=== PATIENT | female | born 1965 | race Caucasian/White ===

== ENCOUNTER 2017-12-15 12:03 | Observation (INO) ==
[2017-12-15 13:04] LABS: Basophils % 0.7 %; Eosinophils # 0.1 K/mcL (0.0-0.6); Eosinophils % 1.9 %; Hematocrit 45.1 % (35.3-44.9); Hemoglobin 14.3 g/dL (11.5-15.4); Immature Granulocytes % 0.4 % (0-4); Lymphocytes % 34.2 %; Mean Corpuscular HGB Conc 31.7 g/dL (31.6-35.5); Mean Corpuscular Hemoglobin 28.3 pg (28.0-33.3); Mean Corpuscular Volume 89.1 fL (83.0-100.0); Mean Platelet Volume 10.3 fL (9.4-12.4); Monocytes # 0.5 K/mcL (0.0-1.3); Monocytes % 8.8 %; Neutrophils # 3.1 K/mcL (1.6-8.9); Nucleated Red Blood Cells 0.4 /100 WBC (0); Platelet Count 329 K/mcL (140-400); Red Blood Count 5.06 M/mcL (3.82-4.97); Red Cell Distribution Width 14.8 % (11.5-14.5)
--- NOTE | 2017-12-15 13:23 | Emergency Department Note ---
Disposition Clinical Impression: Hypoxia, Acute electrocardiogram changes Dyspnea Qualifiers: Dyspnea type: shortness of breath Qualified Code(s): R06.02 - Shortness of breath; R06.00 - Dyspnea, unspecified; R06.01 - Orthopnea Disposition: Admitted As Inpatient Condition: Fair Referrals: Romel Pollard DO [Primary Care Provider] - Forms: ED Satisfaction Letter SOB HPI - General Chief Complaint: ED Shortness of Breath/Dyspnea Stated Complaint: SOB Time Seen by Provider: 12/15/17 12:58 Source: patient Mode of arrival: private vehicle Limitations: no limitations Nursing Notes Reviewed: Yes Vital Signs Reviewed: Yes - History of Present Illness Pt Subjective Complaint: shortness of breath Onset (ago): day(s) Context: recent illness Severity: moderate Consistency/Duration: constant, gradually worsening Improves with: rest Worsens with: exertion, coughing Known history of: other (blood dyscrasia) Associated symptoms: Reports: chest pain ("Just while here, waiting to be seen. Chest pressure, left side, non-radiating, lasted a few minutes then went away.") , cough, nausea/vomiting (nausea only). Denies: pain with inspiration, fever, wheezing, sputum production, orthopnea, lower extremity pain, polyuria, polydipsia, parasthesias, palpitations, hemoptysis, diaphoresis, syncope, abdominal pain, rash, sense of impending doom, other Treatment prior to arrival: oxygen (while at the [facility]) Cough present: Yes Cough Description: Voluntary, Non-Productive, Weak, Loose, Rattling Cough Frequency: Intermittent Sputum production: No - Related Data Home oxygen amount: none Home Medications Medication Instructions Recorded Confirmed Aspirin Enteric Coated [Aspirin EC] 81 mg PO DAILY 08/12/15 12/15/17 BuPROPion XL (24 HR) [Wellbutrin 150 mg PO DAILY 02/16/17 12/15/17 XL] Buspirone HCl [Buspar] 10 mg PO BID 02/16/17 12/15/17 Paroxetine [Paxil] 60 mg PO DAILY 04/13/17 12/15/17 Albuterol Sulfate [Ventolin Hfa] 2 puff IH Q4H PRN 12/15/17 12/15/17 Ergocalciferol (VITAMIN D2) 50,000 unit PO ESPINOZA 12/15/17 12/15/17 [Vitamin D2] Gabapentin [Neurontin] 800 mg PO TID 12/15/17 12/15/17 Levothyroxine [Synthroid] 125 mcg PO QAM 12/15/17 12/15/17 Sucralfate [Carafate] 1 gm PO TID 12/15/17 12/15/17 Previous Rx's Medication Instructions Recorded Ruxolitinib Phosphate [Jakafi] 10 mg PO BID #60 tablet 09/14/17 Allergies Allergy/AdvReac Type Severity Reaction Status Date / Time IVP dye Allergy Hives Uncoded 12/15/17 16:33 All systems ED: reviewed and negative except as stated. Review of Systems: As Per HPI Constitutional: Denies: fever, chills, weakness, weight change, night sweats Eyes: Denies: vision change ENT ED: Reports: congestion ("Sometimes, sinus congestion"). Denies: ear pain Cardiovascular: Reports: as per HPI, chest pain, dyspnea on exertion. Denies: palpitations, orthopnea, edema, syncope, paroxysmal nocturnal dyspnea Respiratory: Reports: as per HPI, cough, dyspnea. Denies: wheezes, hemoptysis, stridor, sputum production Gastrointestinal: Denies: abdominal pain, nausea, vomiting, diarrhea, constipation Genitourinary: Denies: dysuria Musculoskeletal: Denies: back pain, neck pain, joint swelling, arthralgia, myalgia Integumentary: Denies: rash, abrasion, lesions Neurological: Reports: weakness (since last night - generalized). Denies: headache, numbness, paresthesias, confusion, abnormal gait, vertigo Endocrine: Reports: fatigue. Denies: heat or cold intolerance, polydipsia, polyuria Hematological/Lymphatic: Denies: easy bleeding, easy bruising, lymphadenopathy Allergic/Immunologic: Denies: facial swelling, urticaria Past Medical History - Past Medical History Attestation: Yes The following information was validated with the patient. Source: patient Medical history: Reports: other (blood dyscrasia) Surgical history: Reports: non-contributory Psychiatric history: Reports: anxiety, depression - Social History Smoking Status: Current every day smoker Smokeless Tobacco Status: No Alcohol use: Reports: none Drug use: Reports: none Physical Exam - General Limitations: no limitations General appearance: alert, in no apparent distress - Head Head exam: atraumatic, normocephalic, normal inspection - Eye Eye exam: Present: normal appearance, PERRL. Absent: scleral icterus, conjunctival injection, periorbital swelling - ENT ENT exam: mucous membranes dry - Neck Neck exam: Present: normal inspection, full ROM, trachea midline. Absent: tenderness, meningismus, lymphadenopathy - Chest Chest inspection: Present: normal inspection, symmetric chest wall rise. Absent : tenderness - Respiratory Respiratory exam: Present: other. Absent: respiratory distress, wheezes, stridor, accessory muscle use, prolonged expiratory phase - Expanded Respiratory Exam Location: decreased breath sounds: Left, Right, Lower - Cardiovascular Cardiovascular exam: Present: regular rate, normal rhythm, normal heart sounds. Absent: systolic murmur, diastolic murmur - Extremities Exam Extremities exam: Present: normal inspection, full ROM, normal capillary refill. Absent: pedal edema, calf tenderness - Back Exam Back exam: Present: normal inspection, full ROM. Absent: tenderness - Neurological Exam Neurological exam: Present: alert, oriented X3, CN II-XII intact, normal gait - Psychiatric Psychiatric exam: Present: normal affect, normal mood Course Course Narrative: Patient was sent here from the [facility] for evaluation of dyspnea and hypoxia. She reports feeling short of breath since yesterday. She has had a cough for over a month; was diagnosed with Bronchitis and was treated with a Z- pack. She did not improve so when she was seen in F/U she had a RIP done which came back negative. She was diagnosed with a URI and was given Doxycycline. She completed a 10 day course of this antibiotic a week ago. Her symptoms were better for about 2 days and then returned. Now she is worse. She has had nausea without vomiting / diarrhea or abd pain. She denies hemoptysis, syncope, paraesthesias, weakness, leg pain or swelling. She has no known personal or family hx of DVT or PE, no hx of ACS and no fam hx of ACS. On exam she appears uncomfortable and at time anxious, but non-toxic. She is afebrile with normal heart rate. Hypoxic 87-90% on room air - increased to 94% on 3L. Labs, CXR, ekg and O2 ordered by the triage nurse per protocol. Duoneb, aspirin and zofran ordered after exam. Case discussed with Dr. Carrasco. He has had face to face time with the patient and agrees with the assessment and plan. Ddx includes: CHF, PE, COPD, CAP, Bronchitis, Anginal equivalent. Patient has new T wave inversions in tiffanie-septal leads on EKG compared with EKG from 2015. She has not had an ECG done anywhere else. She has never had a stress test or heart cath. Dyspnea is worse with exertion and she had a transient episode of chest pressure. Concerning for angina. Patient has hx of blood dyscrasia, but no hx of clot. Wells score is 3 for "diagnostic possibility". D-dimer added. This came back negative. Discussed ordering CTA with Dr. Carrasco. He recommends not ordering it at this time. Patient has no radiographic or lab findings concerning for CAP or CHF. Additionally, she has no peripheral edema, no murmur, no focal adventitious breath sounds, no fever. Patient will be admitted for further evalaution and treatment of dyspnea and ECG changes. - Reevaluation(s) Reevaluation #1: Patient is feeling better. She states, "I don't feel as tired or weak and I can breath better." She has had no additional episodes of pain. Vitals stable with improved sats, but still requiring O2. Time: 03:00 Vital Signs Temperature 98.3 F 12/15/17 12:28 Pulse Rate 72 12/15/17 12:28 Respiratory Rate 20 12/15/17 12:28 Blood Pressure 124/65 12/15/17 12:28 O2 Sat by Pulse Oximetry 90 12/15/17 12:28 Temperature 98.3 F 12/15/17 12:28 Pulse Rate 72 12/15/17 12:28 Respiratory Rate 20 12/15/17 12:28 Blood Pressure 124/65 12/15/17 12:28 O2 Sat by Pulse Oximetry 90 12/15/17 12:28 Oxygen Delivery Oxygen Delivery Room Air Shortness of Breath/Dyspnea - Medical Records Medical records reviewed: Yes I reviewed the patient's medical records. - Lab Data Lab results reviewed: Yes I reviewed the patient's lab results. Lab results narrative: Laboratory Last Values WBC 5.7 K/mcL (4.3-11.1) 12/15/17 12:56 RBC 5.06 M/mcL (3.82-4.97) H 12/15/17 12:56 Hgb 14.3 g/dL (11.5-15.4) 12/15/17 12:56 Hct 45.1 % (35.3-44.9) H 12/15/17 12:56 MCV 89.1 fL (83.0-100.0) 12/15/17 12:56 MCH 28.3 pg (28.0-33.3) 12/15/17 12:56 MCHC 31.7 g/dL (31.6-35.5) 12/15/17 12:56 RDW 14.8 % (11.5-14.5) H 12/15/17 12:56 Plt Count 329 K/mcL (140-400) 12/15/17 12:56 MPV 10.3 fL (9.4-12.4) 12/15/17 12:56 Immature Gran % 0.4 % (0-4) 12/15/17 12:56 Seg Neutrophils % 54.0 % 12/15/17 12:56 Lymphocytes % 34.2 % 12/15/17 12:56 Monocytes % 8.8 % 12/15/17 12:56 Eosinophils % 1.9 % 12/15/17 12:56 Basophils % 0.7 % 12/15/17 12:56 Neutrophils # 3.1 K/mcL (1.6-8.9) 12/15/17 12:56 Lymphocytes # 2.0 K/mcL (0.6-4.6) 12/15/17 12:56 Monocytes # 0.5 K/mcL (0.0-1.3) 12/15/17 12:56 Eosinophils # 0.1 K/mcL (0.0-0.6) 12/15/17 12:56 Basophils # 0.0 K/mcL (0.0-0.2) 12/15/17 12:56 Nucleated RBCs/100 WBC 0.4 /100 WBC (0) H 12/15/17 12:56 D-Dimer 433 ng/mLFEU (0-500) 12/15/17 12:56 Sodium 136 mEq/L (136-145) 12/15/17 12:56 Potassium 4.1 mEq/L (3.5-5.1) 12/15/17 12:56 Chloride 105 mEq/L (98-107) 12/15/17 12:56 Carbon Dioxide 28 mEq/L (23-29) 12/15/17 12:56 BUN 8 mg/dL (6-20) 12/15/17 12:56 Creatinine 0.60 mg/dL (0.60-1.20) 12/15/17 12:56 Est GFR ( Amer) > 60 (> 60) 12/15/17 12:56 Est GFR (Non-Af Amer) > 60 (> 60) 12/15/17 12:56 BUN/Creatinine Ratio 13 (6-26) 12/15/17 12:56 Glucose 98 mg/dL (70-105) 12/15/17 12:56 Calculated Osmolality 280 (280-300) 12/15/17 12:56 Lactic Acid 0.6 mmol/L (0.5-2.2) 12/15/17 12:56 Calcium 9.0 mg/dL (8.6-10.3) 12/15/17 12:56 Troponin I < 0.03 ng/mL (< 0.04) 12/15/17 12:56 B-Natriuretic Peptide 9 pg/mL (Less than 100) 12/15/17 12:56 Result diagrams: 12/15/17 12:56 12/15/17 12:56 Lab Results 12/15/17 12/15/17 12/15/17 Range/Units 12:56 12:56 12:56 WBC 5.7 (4.3-11.1) K/mcL RBC 5.06 H (3.82-4.97) M/mcL Hgb 14.3 (11.5-15.4) g/dL Hct 45.1 H (35.3-44.9) % MCV 89.1 (83.0-100.0) fL MCH 28.3 (28.0-33.3) pg MCHC 31.7 (31.6-35.5) g/dL RDW 14.8 H (11.5-14.5) % Plt Count 329 (140-400) K/mcL MPV 10.3 (9.4-12.4) fL Immature Gran % 0.4 (0-4) % Seg Neutrophils % 54.0 % Lymphocytes % 34.2 % Monocytes % 8.8 % Eosinophils % 1.9 % Basophils % 0.7 % Neutrophils # 3.1 (1.6-8.9) K/mcL Lymphocytes # 2.0 (0.6-4.6) K/mcL Monocytes # 0.5 (0.0-1.3) K/mcL Eosinophils # 0.1 (0.0-0.6) K/mcL Basophils # 0.0 (0.0-0.2) K/mcL Nucleated RBCs/100 WBC 0.4 H (0) /100 WBC D-Dimer (0-500) ng/mLFEU Sodium 136 (136-145) mEq/L Potassium 4.1 (3.5-5.1) mEq/L Chloride 105 (98-107) mEq/L Carbon Dioxide 28 (23-29) mEq/L BUN 8 (6-20) mg/dL Creatinine 0.60 (0.60-1.20) mg/dL Est GFR ( Amer) > 60 (> 60) Est GFR (Non-Af Amer) > 60 (> 60) BUN/Creatinine Ratio 13 (6-26) Glucose 98 (70-105) mg/dL Calculated Osmolality 280 (280-300) Lactic Acid 0.6 (0.5-2.2) mmol/L Calcium 9.0 (8.6-10.3) mg/dL Troponin I (< 0.04) ng/mL B-Natriuretic Peptide (Less than 100) pg/mL 12/15/17 12/15/17 12/15/17 Range/Units 12:56 12:56 12:56 WBC (4.3-11.1) K/mcL RBC (3.82-4.97) M/mcL Hgb (11.5-15.4) g/dL Hct (35.3-44.9) % MCV (83.0-100.0) fL MCH (28.0-33.3) pg MCHC (31.6-35.5) g/dL RDW (11.5-14.5) % Plt Count (140-400) K/mcL MPV (9.4-12.4) fL Immature Gran % (0-4) % Seg Neutrophils % % Lymphocytes % % Monocytes % % Eosinophils % % Basophils % % Neutrophils # (1.6-8.9) K/mcL Lymphocytes # (0.6-4.6) K/mcL Monocytes # (0.0-1.3) K/mcL Eosinophils # (0.0-0.6) K/mcL Basophils # (0.0-0.2) K/mcL Nucleated RBCs/100 WBC (0) /100 WBC D-Dimer 433 (0-500) ng/mLFEU Sodium (136-145) mEq/L Potassium (3.5-5.1) mEq/L Chloride (98-107) mEq/L Carbon Dioxide (23-29) mEq/L BUN (6-20) mg/dL Creatinine (0.60-1.20) mg/dL Est GFR ( Amer) (> 60) Est GFR (Non-Af Amer) (> 60) BUN/Creatinine Ratio (6-26) Glucose (70-105) mg/dL Calculated Osmolality (280-300) Lactic Acid (0.5-2.2) mmol/L Calcium (8.6-10.3) mg/dL Troponin I < 0.03 (< 0.04) ng/mL B-Natriuretic Peptide 9 (Less than 100) pg/mL - Radiology Data Radiology results reviewed: Yes I reviewed the patient's radiology results. Chest X-Ray 12/15/17 12:41 IMPRESSION: No acute cardiopulmonary process D/ / Darrin Osborne MD / Darrin Osborne MD Interpreting Provider: Darrin Osborne MD - EKG Data EKG attestation: Yes I reviewed and interpreted this EKG. EKG shows normal: Reports: sinus rhythm Rate: Reports: normal Rhythm: Reports: NSR [place]/QRS: Reports: normal T wave inversions noted in: Reports: v1, v2, v3, v4 When compared to previous EKG there are: changes noted Interpretation: Reports: nonspecific ST-T wave changes
[2017-12-15] MEDS ORDERED: Ondansetron ODT 4 MG TAB.RAPDIS SL ONE (13:41)
[2017-12-15] MEDS ORDERED: Ipratropium/Albuterol Neb 3 ML IH ONE (13:41)
[2017-12-15] MEDS ORDERED: Aspirin 81 MG TAB.CHEW PO ONE (13:41)
[2017-12-15 13:50] LABS: BUN/Creatinine Ratio 13 (6-26); Blood Urea Nitrogen 8 mg/dL (6-20); Carbon Dioxide 28 mEq/L (23-29); Chloride 105 mEq/L (98-107); Glucose 98 mg/dL (70-105); Osmolality,Calculated 280 (280-300); Potassium 4.1 mEq/L (3.5-5.1); Sodium 136 mEq/L (136-145); eGFR For African Americans > 60 (> 60); eGFR For Non-African Americans > 60 (> 60)
--- NOTE | 2017-12-15 14:37 | Emergency Department Note ---
Disposition Clinical Impression: Dyspnea, Hypoxia, Acute electrocardiogram changes Disposition: Admitted As Inpatient Condition: Fair General Adult HPI - General Chief complaint: ED Shortness of Breath/Dyspnea Stated complaint: SOB Time Seen by Provider: 12/15/17 12:58 Source: patient Mode of arrival: private vehicle Limitations: no limitations - History of Present Illness Pain Scale: 5 - Related Data Home Medications Medication Instructions Recorded Confirmed Aspirin Enteric Coated [Aspirin EC] 81 mg PO DAILY 08/12/15 12/15/17 BuPROPion XL (24 HR) [Wellbutrin 150 mg PO DAILY 02/16/17 12/15/17 XL] Buspirone HCl [Buspar] 10 mg PO BID 02/16/17 12/15/17 Paroxetine [Paxil] 60 mg PO DAILY 04/13/17 12/15/17 Albuterol Sulfate [Ventolin Hfa] 2 puff IH Q4H PRN 12/15/17 12/15/17 Ergocalciferol (VITAMIN D2) 50,000 unit PO ESPINOZA 12/15/17 12/15/17 [Vitamin D2] Gabapentin [Neurontin] 800 mg PO TID 12/15/17 12/15/17 Levothyroxine [Synthroid] 125 mcg PO QAM 12/15/17 12/15/17 Sucralfate [Carafate] 1 gm PO TID 12/15/17 12/15/17 Previous Rx's Medication Instructions Recorded Ruxolitinib Phosphate [Jakafi] 10 mg PO BID #60 tablet 09/14/17 Allergies Allergy/AdvReac Type Severity Reaction Status Date / Time IVP dye Allergy Hives Uncoded 12/15/17 16:33 Past Medical History - Past Medical History Medical history: Reports: non-contributory Psychiatric history: Reports: anxiety, depression - Social History Smoking Status: Current every day smoker Smokeless Tobacco Status: No Alcohol use: Reports: none Drug use: Reports: none Physical Exam - General Limitations: no limitations General appearance: alert Course Vital Signs Temperature 98.3 F 12/15/17 12:28 Pulse Rate 72 12/15/17 12:28 Respiratory Rate 20 12/15/17 12:28 Blood Pressure 124/65 12/15/17 12:28 O2 Sat by Pulse Oximetry 90 12/15/17 12:28 Temperature 98.5 F 12/15/17 19:23 Pulse Rate 73 12/15/17 19:23 Respiratory Rate 16 12/15/17 19:23 Blood Pressure 111/58 12/15/17 19:23 O2 Sat by Pulse Oximetry 91 12/15/17 19:23 Oxygen Delivery Oxygen Delivery Nasal Cannula Medical Decision Making - Lab Data Result diagrams: 12/15/17 12:56 12/15/17 12:56 Lab Results 12/15/17 12/15/17 12/15/17 Range/Units 12:56 12:56 12:56 WBC 5.7 (4.3-11.1) K/mcL RBC 5.06 H (3.82-4.97) M/mcL Hgb 14.3 (11.5-15.4) g/dL Hct 45.1 H (35.3-44.9) % MCV 89.1 (83.0-100.0) fL MCH 28.3 (28.0-33.3) pg MCHC 31.7 (31.6-35.5) g/dL RDW 14.8 H (11.5-14.5) % Plt Count 329 (140-400) K/mcL MPV 10.3 (9.4-12.4) fL Immature Gran % 0.4 (0-4) % Seg Neutrophils % 54.0 % Lymphocytes % 34.2 % Monocytes % 8.8 % Eosinophils % 1.9 % Basophils % 0.7 % Neutrophils # 3.1 (1.6-8.9) K/mcL Lymphocytes # 2.0 (0.6-4.6) K/mcL Monocytes # 0.5 (0.0-1.3) K/mcL Eosinophils # 0.1 (0.0-0.6) K/mcL Basophils # 0.0 (0.0-0.2) K/mcL Nucleated RBCs/100 WBC 0.4 H (0) /100 WBC D-Dimer (0-500) ng/mLFEU Sodium 136 (136-145) mEq/L Potassium 4.1 (3.5-5.1) mEq/L Chloride 105 (98-107) mEq/L Carbon Dioxide 28 (23-29) mEq/L BUN 8 (6-20) mg/dL Creatinine 0.60 (0.60-1.20) mg/dL Est GFR ( Amer) > 60 (> 60) Est GFR (Non-Af Amer) > 60 (> 60) BUN/Creatinine Ratio 13 (6-26) Glucose 98 (70-105) mg/dL Calculated Osmolality 280 (280-300) Lactic Acid 0.6 (0.5-2.2) mmol/L Calcium 9.0 (8.6-10.3) mg/dL Troponin I (< 0.04) ng/mL B-Natriuretic Peptide (Less than 100) pg/mL 12/15/17 12/15/17 12/15/17 Range/Units 12:56 12:56 12:56 WBC (4.3-11.1) K/mcL RBC (3.82-4.97) M/mcL Hgb (11.5-15.4) g/dL Hct (35.3-44.9) % MCV (83.0-100.0) fL MCH (28.0-33.3) pg MCHC (31.6-35.5) g/dL RDW (11.5-14.5) % Plt Count (140-400) K/mcL MPV (9.4-12.4) fL Immature Gran % (0-4) % Seg Neutrophils % % Lymphocytes % % Monocytes % % Eosinophils % % Basophils % % Neutrophils # (1.6-8.9) K/mcL Lymphocytes # (0.6-4.6) K/mcL Monocytes # (0.0-1.3) K/mcL Eosinophils # (0.0-0.6) K/mcL Basophils # (0.0-0.2) K/mcL Nucleated RBCs/100 WBC (0) /100 WBC D-Dimer 433 (0-500) ng/mLFEU Sodium (136-145) mEq/L Potassium (3.5-5.1) mEq/L Chloride (98-107) mEq/L Carbon Dioxide (23-29) mEq/L BUN (6-20) mg/dL Creatinine (0.60-1.20) mg/dL Est GFR ( Amer) (> 60) Est GFR (Non-Af Amer) (> 60) BUN/Creatinine Ratio (6-26) Glucose (70-105) mg/dL Calculated Osmolality (280-300) Lactic Acid (0.5-2.2) mmol/L Calcium (8.6-10.3) mg/dL Troponin I < 0.03 (< 0.04) ng/mL B-Natriuretic Peptide 9 (Less than 100) pg/mL Attestation Statement - Attestation Attestation: For this encounter, I have reviewed the INTELLIGENCE SUPPORT OFFICER or PA documentation, treatment plan, and medical decision making; and I have had face to face time with this patient. [id number] time provided Patient appears in no acute distress although mildly dyspneic. EKG reviewed by me. Labs reviewed by me. Transcribed x-ray report reviewed by me
[2017-12-15] MEDS ORDERED: Dexamethasone 4 MG/ML VIAL IVP ONE (14:45)
[2017-12-15] MEDS ORDERED: 0.9 % Sodium Chloride 500 ML IVC ONE (14:45)
--- NOTE | 2017-12-15 16:51 | Internal Med History&Physical ---
Date of Encounter: 12/15/17 Time of Encounter: 16:47 Assessment and Plan (1) Chest pain Current visit: Yes Status: Acute Chest pain. Obese patient EKG is unremarkable troponin so far negative we will schedule for stress test and echo in a.m. in the meantime CTAs ordered pending to be done Qualifiers: Chest pain type: intercostal pain Qualified Code(s): R07.82 - Intercostal pain (2) Depression Current visit: No Status: Chronic Chronic continue home medication Qualifiers: Depression Type: unspecified Qualified Code(s): F32.9 - Major depressive disorder, single episode, unspecified (3) Polycythemia vera Current visit: No Status: Chronic Chronic continue home medication (4) Hypothyroidism Current visit: No Status: Chronic Chronic continue her medication Qualifiers: Hypothyroidism type: acquired Qualified Code(s): E03.9 - Hypothyroidism, unspecified Internal Medicine - H&P: HPI Chief complaint: chest pain Admitted From: Emergency Dept Plans for Post Hospital Care: Home History of present illness: Ms. Martin is a 51 year old female Patient with history of hypothyroidism, polycythemia rubra vera on medication, obesity, depression and anxiety. Patient presented to emergency room with shortness of breath and chest pain chest pain worse with activity evaluation exam is unremarkable EKG is unremarkable chest x-ray was normal Bnp 9 d-dimer was 437 which is elevated CTA scan was ordered patient allergic to dye so it will be done later after pre medication . Will admit patientand scheduled for nuclear stress test and echo if CTA is negative for PE Past Med Surg Social Fam HX - Past Medical History Medical history: non-contributory, thyroid disease Psychiatric history: anxiety, depression - Past Surgical History Surgical History: non-contributory - Social History Smoking Status: Current every day smoker Smokeless Tobacco Status: No Alcohol use: none Drug use: none Internal Medicine - H&P: Meds Aspirin Enteric Coated [Aspirin EC] 81 mg PO DAILY 08/12/15 [History] BuPROPion XL (24 HR) [Wellbutrin XL] 150 mg PO DAILY 02/16/17 [History] Buspirone HCl [Buspar] 10 mg PO BID 02/16/17 [History] Paroxetine [Paxil] 60 mg PO DAILY 04/13/17 [History] Ruxolitinib Phosphate [Jakafi] 10 mg PO BID #60 tablet 09/14/17 [Rx] Albuterol Sulfate [Ventolin Hfa] 2 puff IH Q4H PRN 12/15/17 [History] Ergocalciferol (VITAMIN D2) [Vitamin D2] 50,000 unit PO ESPINOZA 12/15/17 [History] Gabapentin [Neurontin] 800 mg PO TID 12/15/17 [History] Levothyroxine [Synthroid] 125 mcg PO QAM 12/15/17 [History] Sucralfate [Carafate] 1 gm PO TID 12/15/17 [History] 3 Allergy/AdvReac Type Severity Reaction Status Date / Time IVP dye Allergy Hives Uncoded 12/15/17 16:33 All Systems PM: A 10-system review of systems was performed and is negative for pertinent findings except as documented above in the HPI. - Constitutional Constitutional: no chills, no fever(s), no night sweats - EENT Eyes: no change in vision, no discharge, no pain, no photophobia Ears: no ear discharge, no ear pain, no tinnitus Nose, mouth and throat: no dysphagia, no nasal discharge, no neck pain, no sore throat - Cardiovascular Cardiovascular ROS IM: chest pain, dyspnea on exertion - Respiratory Respiratory: no cough, no dyspnea, no wheezing, no excessive phlegm production - Gastrointestinal Gastrointestinal: no abdominal pain, no diarrhea, no hematemesis, no hematochezia, no melena, no nausea, no vomiting - Genitourinary Genitourinary: no change in urinary stream, no dysuria, no flank pain, no hematuria - Musculoskeletal Musculoskeletal ROS IM: no numbness, no tingling - Integumentary Integumentary IM: no rash, no unusual bruising - Neurological Neurological ROS: no confusion, no convulsions, no focal weakness, no numbness, no tingling, no tremor(s) - Constitutional Vitals: Temp Pulse Resp BP Pulse Ox 98.3 F 72 20 124/65 90 12/15/17 12:28 12/15/17 12:28 12/15/17 12:28 12/15/17 12:28 12/15/17 12:28 - Head Head exam: Present: atraumatic, normocephalic - Eye Eye exam: Present: PERRL, conjuntiva pink, sclera anicteric Pupils: Present: PERRL - Neck Neck exam general surgery: Present: supple, trachea midline. Absent: lymphadenopathy - Respiratory Respiratory exam: Present: CTAB. Absent: accessory muscle use, rales, rhonchi, wheezes - Cardiovascular Cardiovascular exam: Present: RRR, +S1, +S2. Absent: diastolic murmur, gallop, rubs, systolic murmur - GI/Abdominal GI/Abdominal exam: Present: normal bowel sounds, soft, no peritoneal signs. Absent: distended, tenderness - Extremities Exam Extremities exam: Present: warm, radial pulses palpable and symmetrical. Absent : calf tenderness, cyanotic, pedal edema - Neurological Exam Neurological exam: Present: CN II-XII intact, oriented X3, no focal deficits. Absent: pronater drift, facial droop, speech deficit - Skin Skin exam: Present: dry, intact Internal Med - H&P Results - Labs CBC & Chem 7: 12/15/17 12:56 12/15/17 12:56
[2017-12-15] MEDS ORDERED: Naloxone 0.4 MG/ML INJ IVP PRN (16:55)
[2017-12-15] MEDS ORDERED: Acetaminophen 325 MG TABLET PO PRN (16:55)
[2017-12-15] MEDS ORDERED: traMADol 50 MG TABLET PO PRN (16:55)
[2017-12-15] MEDS ORDERED: 0.9 % Sodium Chloride 1,000 ML IVC SCH (17:00)
[2017-12-15] MEDS: Sucralfate 1 GM TABLET PO SCH (20:25)
[2017-12-15] MEDS: RUXOLITINIB PHOSPHATE 10 MG PO SCH (20:26)
[2017-12-15] MEDS: Gabapentin 400 MG CAPSULE PO SCH (20:26)
[2017-12-15] MEDS ORDERED: predniSONE 20 MG TABLET PO ONE (23:09)
[2017-12-16 00:32] LABS: Basophils % 0.2 %; Hematocrit 41.9 % (35.3-44.9); Hemoglobin 13.5 g/dL (11.5-15.4); Immature Granulocytes % 0.4 % (0-4); Lymphocytes # 0.6 K/mcL (0.6-4.6); Lymphocytes % 12.7 %; Mean Corpuscular HGB Conc 32.2 g/dL (31.6-35.5); Mean Corpuscular Hemoglobin 28.7 pg (28.0-33.3); Mean Platelet Volume 10.5 fL (9.4-12.4); Monocytes # 0.1 K/mcL (0.0-1.3); Neutrophils # 4.1 K/mcL (1.6-8.9); Platelet Count 325 K/mcL (140-400); Red Blood Count 4.71 M/mcL (3.82-4.97); Red Cell Distribution Width 14.8 % (11.5-14.5); Segmented Neutrophils % 84.7 %
[2017-12-16 00:59] LABS: Alanine Aminotransferase 15 Units/L (7-52); Albumin 3.8 g/dL (3.5-5.7); Albumin/Globulin Ratio 1.5 (1.1-2.2); Alkaline Phosphatase 73 Units/L (34-104); Aspartate Amino Transferase 15 Units/L (13-39); BUN/Creatinine Ratio 20 (6-26); Bilirubin,Total 0.4 mg/dL (0.3-1.0); Blood Urea Nitrogen 12 mg/dL (6-20); Calcium 8.7 mg/dL (8.6-10.3); Carbon Dioxide 29 mEq/L (23-29); Chloride 108 mEq/L (98-107); Chol/HDL Ratio 4.1 (0-4.9); Cholesterol 175 mg/dL (< 200); Globulin 2.6 g/dL (2.4-3.5); Glucose 133 mg/dL (70-105); HDL Cholesterol 43 mg/dL (40-59); LDL Cholesterol,Calculated 119 mg/dL (0-99); Magnesium 2.2 mg/dL (1.6-2.6); Osmolality,Calculated 296 (280-300); Potassium 4.5 mEq/L (3.5-5.1); Sodium 142 mEq/L (136-145); Total Protein 6.4 g/dL (6.4-8.9); Triglycerides 65 mg/dL (< 150); eGFR For African Americans > 60 (> 60); eGFR For Non-African Americans > 60 (> 60)
[2017-12-16] MEDS ORDERED: predniSONE 20 MG TABLET PO ONE ×2 (05:00→11:00)
[2017-12-16] MEDS ORDERED: Regadenoson 0.4 MG/5 ML SYRINGE IVP ONE (06:27)
--- NOTE | 2017-12-16 06:47 | Electrocardiograph Report ---
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
[2017-12-16] MEDS ORDERED: Aspirin Enteric Coated 81 MG Tablet PO SCH (09:00)
[2017-12-16] MEDS ORDERED: BuPROPion XL (24 HR) 150 MG TABLET PO SCH (09:00)
[2017-12-16] MEDS: Sucralfate 1 GM TABLET PO SCH ×2 (09:48→14:41)
[2017-12-16] MEDS: Gabapentin 400 MG CAPSULE PO SCH ×2 (09:49→14:41)
[2017-12-16] MEDS: RUXOLITINIB PHOSPHATE 10 MG PO SCH (09:50)
[2017-12-16 11:17] VITALS: BP 103/62
--- NOTE | 2017-12-16 14:58 | Discharge Summary ---
Date of Encounter: 12/16/17 Time of Encounter: 14:55 - Discharge Diagnosis (1) Chest pain Priority: Primary Status: Acute Comments: Chest pain. Obese patient, EKG is unremarkable troponin negative stress test negative for ischemia at the level of heart rate achieved with gaited EF greater than 70% perfusion imaging was negative for ischemia or infarct echo LVEF 60-65%, normal LV chamber size wall thickness and function, moderate left ventricular diastolic dysfunction, normal right ventricular structure and function, no significant valvular dysfunction, unable to estimate RVSP due to lack of TR jet. CTA with no pulmonary embolism or acute pulmonary abnormalities f/u with PCP Qualifiers: Chest pain type: intercostal pain Qualified Code(s): R07.82 - Intercostal pain (2) Depression Priority: Secondary Status: Chronic Comments: chronic condition, continue her medicat Qualifiers: Depression Type: unspecified Qualified Code(s): F32.9 - Major depressive disorder, single episode, unspecified (3) Hypothyroidism Priority: Secondary Status: Chronic Comments: Condition, continue home medications Qualifiers: Hypothyroidism type: acquired Qualified Code(s): E03.9 - Hypothyroidism, unspecified (4) Polycythemia vera Priority: Secondary Status: Chronic Comments: This is a chronic condition continue home medications and follow up with primary provider as previously directed (5) Dyspnea Priority: Primary Status: Acute Comments: Patient satting 88-94% on room air O2 needed, follow-up with primary care physician if symptoms persist. Qualifiers: Dyspnea type: shortness of breath Qualified Code(s): R06.02 - Shortness of breath; R06.00 - Dyspnea, unspecified; R06.01 - Orthopnea - Discharge Medications Home Medications: Aspirin Enteric Coated [Aspirin EC] 81 mg PO DAILY 08/12/15 [History] BuPROPion XL (24 HR) [Wellbutrin Xl] 150 mg PO DAILY 02/16/17 [History] Buspirone HCl [Buspar] 10 mg PO BID 02/16/17 [History] Paroxetine [Paxil] 60 mg PO DAILY 04/13/17 [History] Ruxolitinib Phosphate [Jakafi] 10 mg PO BID #60 tablet 09/14/17 [Rx] Albuterol Sulfate [Ventolin Hfa] 2 puff IH Q4H PRN 12/15/17 [History] Ergocalciferol (VITAMIN D2) [Vitamin D2] 50,000 unit PO ESPINOZA 12/15/17 [History] Gabapentin [Neurontin] 800 mg PO TID 12/15/17 [History] Levothyroxine [Synthroid] 125 mcg PO QAM 12/15/17 [History] Sucralfate [Carafate] 1 gm PO TID 12/15/17 [History] Allergies/Adverse Reactions: 3 Allergy/AdvReac Type Severity Reaction Status Date / Time IVP dye Allergy Hives Uncoded 12/15/17 16:33 Procedures/tests Complete & Pending: Procedures Performed prior 72 hours Category Date Time Status CT angio chest [CT] Stat Cat Scan 12/16/17 12:15 Draft NM [place] perf SPECT multi [NM] Routine Exams 12/15/17 17:08 Taken EV echocardiogram Routine Y 12/15/17 17:07 Completed SP pharm nuclear stress Routine Y 12/15/17 17:08 Completed Date of admission: 12/15/17 15:30 Primary care physician: Romel Pollard Discharging clinician: Delores Herron Anticipated date of discharge: 12/16/17 - Patient Status Disposition: Home, Self-Care Condition: Fair Functional capacity at discharge: independent ambulation Overall status at discharge: patient is back to baseline - Discharge Instructions Follow Up With: Daniel Page MD [Partnered Physician] - 12/29/17 10:00 am - Diet and Activity Activity: resume usual activities as tolerated Diet: advance to your usual diet Interval History: Patient lying in bed in no distress, no further chest pain. She has rather flat affect. She states she still feels like she needs oxygen but O2 sats are 88-94% on room air. She was shallow breathing encouraged her to take deep breaths during her exam. Denies fever chills cough, no pain or other complaints. Hospital course: Ms. Martin is a 51 year old female presented with chest pain, CTA is negative for PE or acute pulmonary findings, stress test is negative for ischemia. Troponins were negative. EKG with no changes. Patient should follow-up with primary care physician - Time Spent with Patient Total time spent providing and/or coordinating discharge services: - Constitutional Vitals: Temp Pulse Resp BP Pulse Ox 98.8 F 75 16 103/62 91 12/16/17 11:16 12/16/17 11:16 12/16/17 11:16 12/16/17 11:16 12/16/17 11:16 General appearance: Present: cooperative, A&O X 3, no acute distress, obese, answers questions appropriately - Head Head exam: Present: atraumatic, normocephalic - Eye Eye exam: Present: PERRL, conjuntiva pink, sclera anicteric Pupils: Present: PERRL - Neck Neck exam general surgery: Present: supple, trachea midline. Absent: lymphadenopathy - Respiratory Respiratory exam: Present: CTAB. Absent: accessory muscle use, rales, rhonchi, wheezes - Cardiovascular Cardiovascular exam: Present: RRR, +S1, +S2. Absent: diastolic murmur, gallop, rubs, systolic murmur - GI/Abdominal GI/Abdominal exam: Present: normal bowel sounds, soft, no peritoneal signs. Absent: distended, tenderness - Extremities Exam Extremities exam: Present: warm, radial pulses palpable and symmetrical. Absent : calf tenderness, cyanotic, pedal edema - Neurological Exam Neurological exam: Present: CN II-XII intact, oriented X3, no focal deficits. Absent: pronater drift, facial droop, speech deficit - Skin Skin exam: Present: dry, intact, warm
== END 2017-12-16 16:50 | disposition home or self-care (01) ==
LOC: 3BNU 12:03 → EMEROO 12:03 → 3BNU 17:51
PROVIDERS: ADMIT Internal Medicine Cardiovascular Disease; ATTEND Registered Nurse